=== PATIENT | female | born 1985 | race Caucasian/White ===

== ENCOUNTER 2020-03-13 07:57 | Outpatient (REF) | payer OTHER, MEDICAID, SELFPAY ==
[2020-03-13 22:09] LABS: ALT 51 U/L (14-59); AST 19 U/L (15-37); Albumin 3.9 g/dL (3.4-5.0); Alkaline Phosphatase 71 U/L (46-116); Anion Gap 7.5 mmol/L (3-11); BUN 12 mg/dL (7-18); Bilirubin, Total 0.3 mg/dL (0.2-1.0); CO2 27.5 mmol/L (21.0-32.0); CREATININE 0.77 mg/dL (0.55-1.02); Calcium 8.7 mg/dL (8.5-10.1); Calculated LDL 148 mg/dL (<100); Chloride 105 mmol/L (98-107); Cholesterol 208 mg/dL (<200); Glucose 104 mg/dL (74-106); HDL Cholesterol 32 mg/dL (40-60); Potassium 4.4 mmol/L (3.5-5.1); Sodium 140 mmol/L (136-145); Triglyceride 143 mg/dL (<150)
== END 2020-03-13 08:17 ==
LOC: NCHCN 07:57
PROVIDERS: Visit Provider Family Medicine
DX: R73.03 Prediabetes (principal); L68.0 Hirsutism; Z13.220 Encounter for screening for lipoid disorders
CPT/HCPCS: 80053; 80061; 83036

== ENCOUNTER 2020-11-13 18:05 | Outpatient (REF) | payer OTHER, MEDICAID, SELFPAY | END 2020-11-13 18:06 | disposition home or self-care (01) | LOC: NCHCN 18:05 | PROVIDERS: Visit Provider Nurse Practitioner Family | DX: L29.2 Pruritus vulvae (principal) | CPT/HCPCS: 87480; 87510; 87660 ==

== ENCOUNTER 2021-04-11 12:49 | Outpatient (REF) | payer OTHER, MEDICAID, SELFPAY ==
--- NOTE | 2021-04-11 10:00 | PAPFT_PTH ---
PATIENT: Nereyda Rapp LOC: [facility]#:[id number] AGE/SX: 35/F ROOM: RE04/11/[address]: Candice Carranza : 1985 BED: DIS: 04/11/2021 SPEC #: [id number] RECD: 04/11/21 17:00 STATUS: PEDRO PABLO REOmaira #: [id number] MARIA ISABEL: 04/11/21 10:[address]: Candice Carranza DEPT: [facility] Cytology RECD BY: Divya Mccoy Tissues: 1 - CX/ENDOCX FOR PAP SMEARS Procedures: PAP THIN PREP/[facility] Screening Comments: [id number] (CHLAMYDIA/GC)
[2021-04-11 15:05] LABS: ALT 88 U/L (14-59); AST 45 U/L (15-37); Anion Gap 9.4 mmol/L (3-11); BUN 11 mg/dL (7-18); CO2 27.6 mmol/L (21.0-32.0); CREATININE 0.8 mg/dL (0.55-1.02); Calcium 9.2 mg/dL (8.5-10.1); Calculated LDL 131 mg/dL (<100); Chloride 104 mmol/L (98-107); Cholesterol 194 mg/dL (<200); Glucose 95 mg/dL (74-106); HDL Cholesterol 40 mg/dL (40-60); Potassium 4.5 mmol/L (3.5-5.1); Sodium 141 mmol/L (136-145); Triglyceride 116 mg/dL (<150)
[2021-04-13 12:24] LABS: Syphilis Total Ab w/Reflex Nonreactive (Nonreactive)
[2021-04-14 11:43] LABS: HIV-1/2 Ag & Ab Screen Negative (Negative)
[2021-04-14 12:02] LABS: Hepatitis C Ab w Rflx HCV PCR Negative (Negative)
[2021-04-14 15:24] LABS: Chlamydia Result Negative (Negative); GC Result Negative (Negative)
[2021-04-16 15:29] LABS: 1,25-Dihydroxyvitamin D 23 pg/mL (18-78)
== END 2021-04-11 12:50 | disposition home or self-care (01) ==
LOC: NCHCN 12:49
PROVIDERS: Visit Provider Nurse Practitioner Family
DX: Z11.3 Encounter for screening for infections with a predominantly sexual mode of transmission (principal); Z00.00 Encounter for general adult medical examination without abnormal findings; E78.5 Hyperlipidemia, unspecified; E11.9 Type 2 diabetes mellitus without complications; Z12.4 Encounter for screening for malignant neoplasm of cervix; Z11.4 Encounter for screening for human immunodeficiency virus [HIV]; Z11.59 Encounter for screening for other viral diseases; E55.9 Vitamin D deficiency, unspecified
CPT/HCPCS: 80048; 80061; 86803; 87389; 87491; 87591; 88142; 82652; 84450; 84460; 86780

== ENCOUNTER 2021-09-29 13:29 | Outpatient (CLI) | payer OTHER, SELFPAY ==
--- NOTE | 2021-09-29 11:30 | DI.RAD_ITS ---
Exam(s) XR KNEE LT 3V AP,LAT,MUNDO EXAM: XR KNEE LT 3V AP,LAT,MUNDO CLINICAL HISTORY: pain. TECHNIQUE: 2D digital imaging was performed. COMPARISON: No exams were available for comparison FINDINGS: 3 views No evidence fracture nor obvious joint effusion. No degenerative changes. No significant osseous le sions. Bone density normal. IMPRESSION: No significant osseous findings. No obvious joint effusion DATA REPOSITORY: RADIATION DOSE DELIVERED:
== END 2021-09-29 13:30 | disposition home or self-care (01) ==
LOC: DIORS 13:29
PROVIDERS: PCP Nurse Practitioner Family; Referring Provider Nurse Practitioner Family; Visit Provider Physician Assistant Surgical
DX: M25.562 Pain in left knee (principal)
CPT/HCPCS: 73562

== ENCOUNTER 2021-10-09 01:17 | Outpatient (CLI) | payer OTHER, SELFPAY ==
--- NOTE | 2021-10-09 07:15 | DI.MRI_ITS ---
Exam(s) MR LOWER JOINT LT WO EXAM: MR LOWER JOINT LT WO CLINICAL HISTORY: PAIN,acute traumatic internal derangement,s83.105a TECHNIQUE: Multiplanar multisequence MRI was performed.. COMPARISON: No exams were available for comparison FINDINGS: MR examination of the knee was performed according to the usual protocol. There is no significant knee joint effusion. No significant bony signal abnormality seen. Medial tibiofemoral joint: The articular cartilage of the femur and tibia appears well maintained. T he meniscus and attachments appear intact. The medial collateral ligament appears intact. No flash welder omedial corner injury seen. Lateral tibiofemoral joint: The articular cartilage of the femur and tibia appears well maintained. The meniscus and attachments appear intact. The lateral collateral ligament complex and posterolater al corner structures appear intact. Patellofemoral joint and extensor mechanism: The articular cartilage of the patellofemoral joint appe ars intact. The superior and inferior patellar fat pads appear normal with no signal abnormality. The quadriceps tendon and patellar tendon appear intact with no evidence of a tear or significant sepideh ma. The medial and lateral retinacula appear intact. Cruciate ligaments: Cruciate ligaments and attachments appear normal with no evidence of a tear. Tibiofibular joint: No specific abnormality involving the tibiofibular joint. IMPRESSION: Negative knee MRI. DATA REPOSITORY:
== END 2021-10-09 01:37 ==
LOC: DI 01:17
PROVIDERS: PCP Nurse Practitioner Family; Visit Provider Student in an Organized Health Care Education/Training Program
DX: S83.105A Unspecified dislocation of left knee, initial encounter (principal)
CPT/HCPCS: 73721

== ENCOUNTER 2022-08-27 16:21 | Outpatient (REF) | payer OTHER, SELFPAY ==
[2022-08-27 21:26] LABS: ALT 29 U/L (14-59); AST 13 U/L (15-37); Albumin 4.3 g/dL (3.4-5.0); Alkaline Phosphatase 81 U/L (46-116); BUN 16 mg/dL (7-18); Bilirubin, Total 0.3 mg/dL (0.2-1.0); CREATININE 0.9 mg/dL (0.55-1.02); Calcium 9.2 mg/dL (8.5-10.1); Chloride 104 mmol/L (98-107); Glucose 84 mg/dL (74-106); Potassium 4.4 mmol/L (3.5-5.1); Sodium 142 mmol/L (136-145); Total Protein 7.7 g/dL (6.4-8.2)
[2022-08-27 21:44] LABS: Vitamin D 25 Total 26.6 ng/mL (30-100)
== END 2022-08-27 16:22 | disposition home or self-care (01) ==
LOC: NCHCN 16:21
PROVIDERS: PCP Nurse Practitioner Family; Visit Provider Nurse Practitioner Family
DX: E28.2 Polycystic ovarian syndrome (principal); E55.9 Vitamin D deficiency, unspecified
CPT/HCPCS: 80053; 82306

== ENCOUNTER 2023-09-03 21:19 | Outpatient (REF) | payer OTHER, SELFPAY ==
[2023-09-03 21:24] LABS: HCT 40.5 % (36.0-46.0); HGB 13.3 g/dL (11.2-15.7); MCH 28.9 pg (27.0-33.0); MCHC 32.8 % (32.0-36.0); MCV 88 fL (80-95); MPV 10.9 fL (8.0-11.0); Platelet Count 356 10^3/uL (130-400); RDW 14.7 % (11.7-14.6); WBC 8.57 10^3/uL (4.4-10.8)
[2023-09-03 21:40] LABS: Hemoglobin A1C 5.6 % (<5.7)
[2023-09-03 21:51] LABS: ALT 41 U/L (14-59); AST 20 U/L (15-37); Albumin 4.1 g/dL (3.4-5.0); Alkaline Phosphatase 72 U/L (46-116); Anion Gap 9.4 mmol/L (3-11); BUN 10 mg/dL (7-18); Bilirubin, Total 0.4 mg/dL (0.2-1.0); CO2 27.6 mmol/L (21.0-32.0); CREATININE 0.9 mg/dL (0.55-1.02); Calcium 9.7 mg/dL (8.5-10.1); Calculated LDL 129 mg/dL (<100); Chloride 103 mmol/L (98-107); Cholesterol 191 mg/dL (<200); Estimated GFR 84.97 (mL/min/1.73m2); Glucose 88 mg/dL (74-106); HDL Cholesterol 39 mg/dL (40-60); Potassium 4.4 mmol/L (3.5-5.1); Sodium 140 mmol/L (136-145); TSH 1.58 uIU/Ml (0.36-3.74); Total Protein 7.7 g/dL (6.4-8.2); Triglyceride 118 mg/dL (<150)
[2023-09-03 22:03] LABS: Vitamin D 25 Total 26.7 ng/mL (30-100)
== END 2023-09-03 21:20 | disposition home or self-care (01) ==
LOC: LBN 21:19
PROVIDERS: PCP Nurse Practitioner Family; Visit Provider Nurse Practitioner Family
DX: Z00.00 Encounter for general adult medical examination without abnormal findings (principal); N92.5 Other specified irregular menstruation; E11.9 Type 2 diabetes mellitus without complications; E55.9 Vitamin D deficiency, unspecified
CPT/HCPCS: 80053; 80061; 82306; 85027; 83036; 84443

== ENCOUNTER 2024-09-08 13:28 | Outpatient (REF) | payer OTHER, SELFPAY ==
--- NOTE | 2024-09-08 12:15 | PAPFT_PTH ---
PATIENT: Nereyda Rapp LOC: [facility]#:[id number] AGE/SX: 39/F ROOM: RE09/08/[address]: Candice Carranza : 1985 BED: DIS: 09/08/2024 SPEC #: [id number] RECD: 09/08/24 17:50 STATUS: PEDRO PABLO REOmaira #: [id number] MARIA ISABEL: 09/08/24 12:[address]: Candice Carranza DEPT: [facility] Cytology RECD BY: Trina Gutierrez Tissues: 1 - CX/ENDOCX FOR PAP SMEARS Procedures: PAP THIN PREP/[facility] Screening HPV DNA PROBE Comments: [id number] (HPV 16 & 18/45)
[2024-09-08 14:31] LABS: HCT 46.1 % (36.0-46.0); MCH 30.1 pg (27.0-33.0); MCHC 32.5 % (32.0-36.0); MCV 93 fL (80-95); MPV 10.8 fL (8.0-11.0); Platelet Count 340 10^3/uL (130-400); RBC 4.98 10^6/uL (3.93-5.22); RDW 13.6 % (11.7-14.6); WBC 8.21 10^3/uL (4.4-10.8)
[2024-09-08 15:02] LABS: Hemoglobin A1C 5.7 % (<5.7)
[2024-09-08 15:10] LABS: ALT 69 U/L (14-59); AST 31 U/L (15-37); Albumin 4.4 g/dL (3.4-5.0); Alkaline Phosphatase 68 U/L (46-116); BUN 11 mg/dL (7-18); Bilirubin, Total 0.4 mg/dL (0.2-1.0); Calcium 9.7 mg/dL (8.5-10.1); Chloride 103 mmol/L (98-107); Estimated GFR 74.41 (mL/min/1.73m2); Glucose 95 mg/dL (74-106); Potassium 4.8 mmol/L (3.5-5.1); Sodium 140 mmol/L (136-145); Total Protein 7.7 g/dL (6.4-8.2); Vitamin D 25 Total 37 ng/mL (30-100)
== END 2024-09-08 13:29 | disposition home or self-care (01) ==
LOC: NCHCN 13:28
PROVIDERS: PCP Nurse Practitioner Family; Visit Provider Nurse Practitioner Family
DX: Z12.4 Encounter for screening for malignant neoplasm of cervix (principal); Z00.00 Encounter for general adult medical examination without abnormal findings; R73.03 Prediabetes; E55.9 Vitamin D deficiency, unspecified
CPT/HCPCS: 80053; 82306; 85027; 88142; 83036; 87624

== ENCOUNTER 2024-12-14 18:05 | Outpatient (REF) | payer OTHER, SELFPAY | END 2024-12-14 18:06 | disposition home or self-care (01) | LOC: NCHCN 18:05 | PROVIDERS: PCP Nurse Practitioner Family; Visit Provider Family Medicine | DX: N89.8 Other specified noninflammatory disorders of vagina (principal) | CPT/HCPCS: 87480; 87510; 87660 ==